=== PATIENT | female | born 1935 | race Caucasian/White ===

== ENCOUNTER 2016-12-14 12:00 | Emergency (ER) | payer MEDICARE ==
[~2016-12-14] VITALS: Ht 160 cm; Wt 68.8 kg
[~2016-12-14 12:00] MED LIST: ADLT ASA LOW81 MG PO; ADVAIR DISK1 IN; AUGMENTIN500TAB PO; AUGMENTIN875TAB PO; BABY ASPIRIN81 MG PO; BENZONATATE200 MG PO; CELEXA20 MG PO; CIPRO500 MG OR; CITALOPRAM20 MG PO; ESCITALOPRAM OX10 MG PO; FLONASE NASAL50 MCG; GLIPIZIDE ER2.5 MG OR; GLIPIZIDE ER5 MG PO; GLIPIZIDE5 MG PO; GLUCOPHAGE500 MG PO; GLUCOTROL XL10 MG PO; HYDROCO/APAP1 TA9 PO; LISINOPRIL10 MG PO; LORTAB 7.5 PO; LOVASTATIN10 M1 OR; LOVASTATIN40 M1 PO; METFORMIN1000 MG OR; MULTI VIT PO; NAPROSYN500 MG PO; PREDNISONE20 MG PO; PROVENTIL HFA IN; ROBITUSSIN AC10 ML PO; SPIRIVA HANDIHALER IN; THEO-24200 MG PO; THEOPHYLLINE S200 MG PO; VENTOLIN HFA IN; ZITHROMAX1 GM PO; ZPAK PO; ZYRTEC-D AL1 OR; ZYRTEC1 MG/ML OR
[2016-12-14] MEDS ORDERED: CELEXA20 MG PO (13:47)
[2016-12-14 14:20] LABS: URINE BILIRUBIN - DIPSTICK NEGATIVE (NEGATIVE); URINE BLOOD DIPSTICK NEGATIVE (NEGATIVE); URINE CLARITY CLEAR; URINE COLOR YELLOW; URINE GLUCOSE - DIPSTICK NEGATIVE (NEGATIVE); URINE KETONE NEGATIVE (NEGATIVE); URINE LEUK ESTERASE NEGATIVE (Negative); URINE NITRITE - DIPSTICK NEGATIVE (Negative); URINE PH 5.5 (4.5-8.0); URINE PROTEIN - DIPSTICK TRACE mg/dL (NEG-TRACE); URINE SPECIFIC GRAVITY 1.025; URINE UROBILINOGEN - DIPSTICK 0.2 E.U./dL (0.2)
[2016-12-14] MEDS ORDERED: FLEXERIL PO (15:07)
[2016-12-14] MEDS ORDERED: PERCOCET 5/325M1 TAB PO (15:07)
[2016-12-14 15:41] VITALS: BP 121/57
== END 2016-12-14 15:41 | disposition home or self-care (01) ==
LOC: ED 12:00
PROVIDERS: Emergency Medicine
DX: M54.40 Lumbago with sciatica, unspecified side (principal)

== ENCOUNTER 2017-11-09 15:44 | Observation (INO) | payer MEDICARE ==
[~2017-11-09] VITALS: Ht 160 cm; Wt 67.5 kg
[~2017-11-09 15:44] MED LIST changes: +FLEXERIL PO; +PERCOCET 5/325M1 TAB PO
--- NOTE | 2017-11-09 16:04 | NUR ---
IMMEDIATELY TO ER ROOM 13, TO BED, STAT 12 LEAD EKG DONE
--- NOTE | 2017-11-09 16:10 | NUR ---
MD IN ROOM. PT C/O SHARP PAIN BEHIND SHOULDER BLADES THAT RADIATES AROUND TO BOTH RIBS X1 WEEK. REFUSED PAIN MEDS TO MD @ BEDSIDE. ABD SOFT/NONTENDER. EYES PERRLA @3. NEUROS WNL. EKG COMPLETE. IV ESTABLISHED, LABS DRAWN. FULL ROM W/PAIN.
[2017-11-09] MEDS ORDERED: METFORMIN500 M2 PO (16:17)
[2017-11-09 16:30] LABS: HEMATOCRIT 37.8 % (37.0-47.0); HEMOGLOBIN 12.6 g/dl (12.0-16.0); IMMATURE GRANULOCYTES 0.3 % (0.0-1.0); MEAN CORPUSCULAR HGB CONC 33.3 g/L CALC (32.0-36.0); NEUT# 3.58 thou/uL (2.00-7.15); RED BLOOD COUNT 4.2 mill/uL (4.20-5.60); RED CELL DISTRI WIDTH 12.5 % (11.5-15.5)
[2017-11-09 16:47] LABS: BUN 26 mg/dL (8-23); BUN/CREATININE RATIO 22 (12-20 (CALC)); CARBON DIOXIDE 25 mmol/l (22-30); CHLORIDE 104 mmol/l (95-108); CREATININE 1.2 mg/dL (0.5-1.0); GFR 43 ML/MIN (>=60 (CALC)); GFR FOR AFR.AMER. 52 ML/MIN (>=60 (CALC)); SODIUM 140 mmol/l (137-146)
[2017-11-09 16:55] LABS: ANION GAP 16 (6-22 (CALC)); POTASSIUM 5.2 mmol/l (3.5-5.1)
--- NOTE | 2017-11-09 17:05 | NUR ---
PT RESTING IN BED. AT BEDSIDE. PT WAITING TO GO TO CT. NO S/S OF DISTRESS. WILL CONTINUE TO MONITOR.
--- NOTE | 2017-11-09 17:38 | NUR ---
PT RETURNED FROM CATSCAN, RESTLESS & DIAPHORETIC. EKG REPEATED. MD BOBO AWARE. PT ON CARDIAC/O2/BP MONITOR. WILL CONTINUE TO MONITOR.
--- NOTE | 2017-11-09 17:46 | NUR ---
@ BEDSIDE ASSESSING PT.
--- NOTE | 2017-11-09 19:00 | NUR ---
Admission Note Report Given to: JAY Transported by: Wheelchair X Stretcher Transported with: X Nurse Transporter X Patent IV O2 X Log Rafter
[2017-11-09 19:25] VITALS: BP 145/65
--- NOTE | 2017-11-09 19:25 | NUR ---
PT TO ROOM 261 VIA STRETCHER ACCOMPANIED BY ER STAFF. PT TRANSFERRED TO BED WITH MINIMAL ASSIT
--- NOTE | 2017-11-09 19:40 | NUR ---
pt transported to floor rm 261 by stretcher.
--- NOTE | 2017-11-09 19:45 | NUR ---
PT SITTING UP IN BED. PT IS ALERT AND ORIENTED X3. PERRLA. RESP ARE EVEN AND UNLABORED. LUNGS ARE CLEAR. TELE IN PLACE. HR REGULAR. PULES PALPABLE THROUGHOUT. NO EDEMA NOTED. BS ACTIVE. #18 LAC. NO REDNESS OR EDEMA NOTED. WILL CONTINUE TO MONITOR.
--- NOTE | 2017-11-10 | NUR ---
PT RESTING IN BED WITH EYES CLOSED. RESP ARE EVEN AND UNLABORED. NO DISTRESS NOTED. WILL CONTINUE TO MONITOR
[2017-11-10 00:05] VITALS: BP 142/61
--- NOTE | 2017-11-10 03:59 | NUR ---
PT RESTING IN BED WITH EYES CLOSED. RESP ARE EVEN AND UNLABORED. NO DISTRESS NOTED. WILL CONTINUE TO MONITOR
[2017-11-10 04:04] VITALS: BP 139/65
[2017-11-10 05:54] LABS: HEMATOCRIT 35.3 % (37.0-47.0); HEMOGLOBIN 11.7 g/dl (12.0-16.0); IMMATURE GRANULOCYTES 0.3 % (0.0-1.0); MEAN CELL VOLUME 90.7 fL CALC (80.0-100.0); MEAN CORPUSCULAR HGB 30.1 pG CALC (26.0-32.0); MEAN CORPUSCULAR HGB CONC 33.1 g/L CALC (32.0-36.0); NEUT# 3.75 thou/uL (2.00-7.15); RED BLOOD COUNT 3.89 mill/uL (4.20-5.60); RED CELL DISTRI WIDTH 12.5 % (11.5-15.5)
[2017-11-10 06:07] LABS: CREATININE 1.1 mg/dL (0.5-1.0); MAGNESIUM 1.6 mg/dL (1.6-2.3); POTASSIUM 5.1 mmol/l (3.5-5.1)
[2017-11-10 06:56] VITALS: BP 136/56
--- NOTE | 2017-11-10 07:00 | NUR ---
PT IN BED RESTING. PT ALERT, ORIENTED X3. SPEECH IS CLEAR. FACE SYMMETRICAL. PUPILS EQUAL AND REACTIVE TO LIGHT. GOOD CAP REFILL. SKIN INTACT. STRONG UPPER AND LOWER EXTREMITIES. STRONG APICAL, RADIAL, AND PEDAL PULSES. RESPIRATIONS EVEN AND UNLABORED. LUNG SOUNDS CLEAR. BOWEL SOUNDS ACTIVE. PT HAS #18 LAC. NO REDNESS OR SWELLING. PT STATES SHE HAS "SHARP" PAIN ON LEFT SIDE FLANK AREA. RENITA YARBROUGH NOTIFIED. BED IN LOWEST POSITION. SIDE RAILS UP. WHEELS LOCKED. CALL LIGHT WITHIN REACH. WILL CONTINUE TO MONITOR.
--- NOTE | 2017-11-10 07:30 | NUR ---
PT.IS IN BED AND APPEARS TO BE SLEEPING AT THIS TIME. REPORT RECEIVED FROM NIGHT NURSE. NO S/S OF DISTRESS NOTED, CALL LIGHT W/IN REACH
[2017-11-10 09:40] VITALS: BP 124/58
--- NOTE | 2017-11-10 09:40 | NUR ---
PT.C/O PAIN WHEN COUGHING IN EPIGASTRIC AREA AND RIGHT SIDED BACK FLANK AREA. V/S ASSESSED BP 124/58,HR71. PT.REPORTS SHE HAS BEEN HAVING THIS FOR ABOUT A WEEK, BUT HAS NOT HAD A COLD OR COUGH OF ANY KIND. PT'S MENTIONED THAT THEY HAVE BEEN MOVING OVER THE LAST TWO WEEKS.
[2017-11-10 11:12] VITALS: BP 144/74
[2017-11-10] MEDS ORDERED: TRAMADOL HCL50 MG PO (14:59)
[2017-11-10] MEDS ORDERED: BACLOFEN10 MG PO (15:46)
== END 2017-11-10 16:07 | disposition home or self-care (01) ==
LOC: ED 15:44 → ED-I 16:02 → ED 16:02 → ED-I 18:14 → ED 18:40 → MS2 18:41
PROVIDERS: Family Medicine; Nurse Practitioner Family; ADMIT Internal Medicine; ATTEND Internal Medicine
DX: I12.9 Hypertensive chronic kidney disease with stage 1 through stage 4 chronic kidney disease, or unspecified chronic kidney disease (principal); E11.22 Type 2 diabetes mellitus with diabetic chronic kidney disease; N18.3 Chronic kidney disease, stage 3 (moderate); E78.5 Hyperlipidemia, unspecified; J44.9 Chronic obstructive pulmonary disease, unspecified; M54.6 Pain in thoracic spine; R06.02 Shortness of breath; Z90.49 Acquired absence of other specified parts of digestive tract; Z85.038 Personal history of other malignant neoplasm of large intestine; Z87.891 Personal history of nicotine dependence; Z79.84 Long term (current) use of oral hypoglycemic drugs
CPT/HCPCS: J2060; Q9967

== ENCOUNTER 2018-05-04 13:23 | Emergency (ER) | payer MEDICARE ==
[~2018-05-04] VITALS: Ht 160 cm; Wt 65.5 kg
[~2018-05-04 13:23] MED LIST changes: +BACLOFEN10 MG PO; +METFORMIN500 M2 PO; +TRAMADOL HCL50 MG PO
[2018-05-04] MEDS ORDERED: METFORMIN500 M2 PO ×2 (13:45→13:46)
[2018-05-04] MEDS ORDERED: LOSARTAN POTASS25 MG PO (13:46)
[2018-05-04] MEDS ORDERED: LOVASTATIN40 M1 PO (13:47)
[2018-05-04] MEDS ORDERED: ESCITALOPRAM OX10 MG PO (13:47)
[2018-05-04] MEDS ORDERED: GLIPIZIDE10 M2 PO (13:49)
[2018-05-04] MEDS ORDERED: LORTAB 5/3255 MG PO (15:03)
[2018-05-04] MEDS ORDERED: IBUPROFEN600 MG PO (15:03)
[2018-05-04 15:15] VITALS: BP 149/74
== END 2018-05-04 15:15 | disposition home or self-care (01) ==
LOC: ED 13:23
PROC: 2W3AXYZ Immobilization of Right Upper Arm using Other Device (ICD-10-PCS; principal; 2018-05-04)
DX: S42.291A Other displaced fracture of upper end of right humerus, initial encounter for closed fracture (principal); I10 Essential (primary) hypertension; E11.9 Type 2 diabetes mellitus without complications; E78.00 Pure hypercholesterolemia, unspecified; W01.0XXA Fall on same level from slipping, tripping and stumbling without subsequent striking against object, initial encounter; Y93.11 Activity, swimming; Y92.008 Other place in unspecified non-institutional (private) residence as the place of occurrence of the external cause

== ENCOUNTER 2019-04-20 13:48 | Emergency (ER) | payer MEDICARE ==
[~2019-04-20] VITALS: Ht 160 cm; Wt 63.6 kg
[~2019-04-20 13:48] MED LIST changes: +GLIPIZIDE10 M2 PO; +IBUPROFEN600 MG PO; +LORTAB 5/3255 MG PO; +LOSARTAN POTASS25 MG PO
[2019-04-20 15:01] LABS: HEMATOCRIT 39.8 % (37.0-47.0); HEMOGLOBIN 13.4 g/dl (12.0-16.0); IMMATURE GRANULOCYTES 0.3 % (0.0-5.0); MEAN CELL VOLUME 86.7 fL CALC (80.0-100.0); MEAN CORPUSCULAR HGB 29.2 pG CALC (26.0-32.0); MEAN CORPUSCULAR HGB CONC 33.7 g/L CALC (32.0-36.0); NEUT# 4.71 thou/uL (2.00-7.15); RED BLOOD COUNT 4.59 mill/uL (4.20-5.60); RED CELL DISTRI WIDTH 12.4 % (11.5-15.5)
[2019-04-20] MEDS ORDERED: LISINOPRIL10 MG PO (15:42)
[2019-04-20] MEDS ORDERED: TRESIBA100 UNIT/M SC (15:43)
[2019-04-20] MEDS ORDERED: ASPIRIN LOW81 M1 PO (15:43)
[2019-04-20] MEDS ORDERED: FISH OIL1000 MG PO (15:43)
[2019-04-20 16:08] LABS: ANION GAP 14 (6-22 (CALC)); BUN 26 mg/dL (8-23); BUN/CREATININE RATIO 31 (12-20 (CALC)); CARBON DIOXIDE 21 mmol/l (22-30); CHLORIDE 110 mmol/l (95-108); CREATININE 0.8 mg/dL (0.5-1.0); GFR > 60 ML/MIN (>=60 (CALC)); GFR FOR AFR.AMER. > 60 ML/MIN (>=60 (CALC)); POTASSIUM 4.4 mmol/l (3.5-5.1); SODIUM 141 mmol/l (137-146)
[2019-04-20] MEDS ORDERED: MECLIZINE 2525 MG PO (16:38)
[2019-04-20 17:09] VITALS: BP 156/70
== END 2019-04-20 17:18 | disposition home or self-care (01) ==
LOC: ED 13:48
PROVIDERS: Family Medicine
DX: R42 Dizziness and giddiness (principal); I10 Essential (primary) hypertension; E11.9 Type 2 diabetes mellitus without complications; Z79.4 Long term (current) use of insulin

== ENCOUNTER 2019-11-28 | Emergency (ER) | payer MEDICARE ==
[~2019-11-28] MED LIST changes: +ASPIRIN LOW81 M1 PO; +FISH OIL1000 MG PO; +MECLIZINE 2525 MG PO; +TRESIBA100 UNIT/M SC
[2019-11-28] MEDS ORDERED: ESCITALOPRAM OX10 MG PO (13:34)
== END 2019-11-28 16:40 | disposition short-term general hospital (02) ==
DX: S72.142A Displaced intertrochanteric fracture of left femur, initial encounter for closed fracture (principal); I10 Essential (primary) hypertension; E11.9 Type 2 diabetes mellitus without complications; V86.59XA Driver of other special all-terrain or other off-road motor vehicle injured in nontraffic accident, initial encounter; Z79.84 Long term (current) use of oral hypoglycemic drugs

== ENCOUNTER 2021-09-20 21:54 | Emergency (ER) | payer MEDICARE ==
[~2021-09-20] VITALS: Ht 157.5 cm; Wt 63.0 kg
[2021-09-20 23:06] LABS: HEMATOCRIT 35.8 % (37.0-47.0); HEMOGLOBIN 11.5 g/dl (12.0-16.0); IMMATURE GRANULOCYTES 0.2 % (0.0-5.0); MEAN CELL VOLUME 92.3 fL CALC (80.0-100.0); MEAN CORPUSCULAR HGB 29.6 pG CALC (26.0-32.0); MEAN CORPUSCULAR HGB CONC 32.1 g/dL CAL (32.0-36.0); NEUT# 4.07 thou/uL (2.00-7.15); RED BLOOD COUNT 3.88 mill/uL (4.20-5.60); RED CELL DISTRI WIDTH 12.8 % (11.5-15.5)
[2021-09-20 23:17] LABS: ALBUMIN 3.7 g/dL (3.2-5.0); ALKALINE PHOSPHATASE 66 u/l (38-126); AMYLASE 93 u/l (30-110); ANION GAP 10 (6-22 (CALC)); BILIRUBIN, TOTAL 0.7 mg/dL (0.0-1.4); BUN 28 mg/dL (8-23); BUN/CREATININE RATIO 22 (12-20 (CALC)); CARBON DIOXIDE 24 mmol/l (22-30); CHLORIDE 107 mmol/l (95-108); CREATININE 1.3 mg/dL (0.5-1.0); GFR 39 ML/MIN (>=60 (CALC)); GFR FOR AFR.AMER. 47 ML/MIN (>=60 (CALC)); POTASSIUM 4.5 mmol/l (3.5-5.1); SGOT/AST 24 u/l (9-36); SODIUM 137 mmol/l (137-146); TOTAL PROTEIN 6.7 g/dL (6.3-8.2)
[2021-09-20 23:29] LABS: MYOGLOBIN 102 ng/mL (0 - 62)
[2021-09-20 23:46] LABS: URINE BILIRUBIN - DIPSTICK NEGATIVE (NEGATIVE); URINE COLOR YELLOW; URINE GLUCOSE - DIPSTICK NEGATIVE (NEGATIVE); URINE KETONE NEGATIVE (NEGATIVE); URINE PH 5.5 (4.5-8.0); URINE PROTEIN - DIPSTICK NEGATIVE (NEG-TRACE); URINE SPECIFIC GRAVITY 1.015; URINE UROBILINOGEN - DIPSTICK 0.2 E.U./dL (0.2)
[2021-09-20 23:51] LABS: URINE LEUK ESTERASE MODERATE (NEGATIVE); URINE NITRITE - DIPSTICK NEGATIVE (Negative)
[2021-09-20 23:52] LABS: URINE BLOOD DIPSTICK NEGATIVE (NEGATIVE)
[2021-09-20 23:54] LABS: URINE BACTERIA MODERATE hpf; URINE EPITHELIAL CELLS MODERATE EPI/hpf (0-FEW); URINE WBC 50-100 WBC/hpf (0-5)
[2021-09-21] MEDS ORDERED: KEFLEX500 MG PO (04:01)
[2021-09-21 04:08] VITALS: BP 162/80
== END 2021-09-21 04:10 | disposition left against medical advice (07) ==
LOC: ED 21:54
PROVIDERS: Emergency Medicine
DX: R07.9 Chest pain, unspecified (principal); N39.0 Urinary tract infection, site not specified; I10 Essential (primary) hypertension; E11.9 Type 2 diabetes mellitus without complications; E78.00 Pure hypercholesterolemia, unspecified; Z91.19 Patient's noncompliance with other medical treatment and regimen; Z85.038 Personal history of other malignant neoplasm of large intestine; Z79.84 Long term (current) use of oral hypoglycemic drugs; Z79.4 Long term (current) use of insulin; E53.8 Deficiency of other specified B group vitamins